=== PATIENT | female | born 1975 | race Caucasian/White ===

== ENCOUNTER 2016-11-05 17:41 | Emergency (ER) | payer SELFPAY ==
[2016-11-05] MEDS ORDERED: Lidocaine 2% Jelly 5 ML TUBE ONE (17:52)
== END 2016-11-05 18:06 | disposition home or self-care (01) ==
LOC: BURERS 17:41
DX: K64.8 Other hemorrhoids (principal); F31.9 Bipolar disorder, unspecified; F17.210 Nicotine dependence, cigarettes, uncomplicated
CPT/HCPCS: 99283

== ENCOUNTER 2016-12-13 17:39 | Emergency (ER) | payer SELFPAY ==
[2016-12-13] MEDS ORDERED: Dexamethasone 4 mg/ml Vial ONE (18:15)
[2016-12-13] MEDS ORDERED: AMOXicillin 250 MG CAP ONE (18:19)
== END 2016-12-13 18:33 | disposition home or self-care (01) ==
LOC: BURERS 17:39
DX: J44.9 Chronic obstructive pulmonary disease, unspecified (principal); J20.9 Acute bronchitis, unspecified; F31.9 Bipolar disorder, unspecified; F17.210 Nicotine dependence, cigarettes, uncomplicated
CPT/HCPCS: 94640; 94760; J1100; J7620

== ENCOUNTER 2017-02-16 10:35 | Emergency (ER) | payer SELFPAY | END 2017-02-16 11:30 | disposition home or self-care (01) | LOC: BURERS 10:35 | DX: K60.2 Anal fissure, unspecified (principal); F31.9 Bipolar disorder, unspecified; F17.210 Nicotine dependence, cigarettes, uncomplicated | CPT/HCPCS: 99283 ==

== ENCOUNTER 2017-03-11 13:55 | Emergency (ER) | payer SELFPAY ==
[2017-03-11 14:18] LABS: #Lymphocytes 1.6 thou/uL (1.20-3.40); #Monocytes 0.5 thou/uL (0.11-0.59); #Neutrophils 8.6 thou/uL (1.40-6.50); %Basophils 0.4 % (0.0-1.0); %Eosinophils 0.1 % (0.0-10.0); %Lymphocytes 14.9 % (21.0-51.0); %Monocytes 4.6 % (0.0-10.0); Hemoglobin 14.4 g/dL (12.0-16.0); MDiff Complete? YES; Macrocytosis SLIGHT = 6-15 cells (100X) (0-5/hpf); Mean Corpuscular HGB CONC 33.5 g/dL (32.0-36.0); Mean Corpuscular Hemoglobin 34.4 pg (27.0-31.0); Mean Platelet Volume 7.8 fL (7.4-10.4); Platelet Count 121 thou/uL (130-400); RBC Distribution Width 11.3 % (11.5-14.5); Red Blood Cell (RBC) Count 4.18 mill/uL (4.20-5.40); White Blood Cell (WBC) Count 10.7 thou/uL (4.8-10.8)
[2017-03-11 14:30] LABS: ALT (SGPT) 11 U/L (8-55); AST (SGOT) 17 U/L (5-34); Albumin 3.8 g/dL (3.5-5.0); Alkaline Phosphatase 53 U/L (40-150); Anion Gap 14 mmol/L (10-20); BUN (Urea Nitrogen) 6 mg/dL (7.0-18.7); Bilirubin, Total 0.3 mg/dL (0.2-1.2); CK (CPK) 70 U/L (29-168); Calc. Creatinine Clearance 0 mL/min (70-130); Calcium 8.7 mg/dL (7.8-10.44); Carbon Dioxide 24 mmol/L (22-29); Chloride 106 mmol/L (98-107); Estimated GFR-MDRD Greater than 90; Globulin 2.3 g/dL (2.4-3.5); Glucose 73 mg/dL (70-105); Lipase 11 U/L (8-78); Potassium 3.8 mmol/L (3.5-5.1); Protein, Total 6.1 g/dL (6.0-8.3); Sodium 140 mmol/L (136-145)
[2017-03-11 14:31] LABS: CKMB 1.5 ng/mL (0-6.6); Troponin I Less than 0.010 ng/mL (< 0.028)
[2017-03-11 14:32] LABS: PTT 28.1 SEC (22.9-36.1)
[2017-03-11 14:33] LABS: INR-International Normal Ratio 0.9; Prothrombin Time 12.7 SEC (12.0-14.7)
[2017-03-11 15:02] LABS: D-Dimer Test 0.65 *mcg/mL (0.27-0.43)
[2017-03-11] MEDS ORDERED: Morphine 4 MG/ML Carpuject ONE (15:06)
--- NOTE | 2017-03-11 16:02 | CT ---
CT ANGIOGRAM THORAX WITH IV CONTRAST AND 3D RECONSTRUCTIONS: DATE: 03/11/17. HISTORY: Chest pain. The patient feels as if she is going to pass out. FINDINGS: No filling defects are seen in the pulmonary arteries to suggest a pulmonary embolus. Thoracic aorta is normal in caliber without evidence of an aortic dissection. There is peribronchial thickening involving the distal left lower lobe bronchioles with debris or muc us plugging within these bronchioles as well. There is patchy parenchymal opacity at the left lung b as which may be related to postobstructive pneumonitis or pneumonia. Findings could be related to as piration pneumonitis. There is soft tissue density in the left hilar region measuring 2.1 cm x 1.4 cm probably related to e nlarged left hilar lymph node. No enlarged mediastinal lymph nodes are seen. There is general hazin ess of the mediastinal fat, but a similar finding is seen in the subcutaneous fat and this may be allie hnical in origin. There are subcentimeter too small to characterize hypodense lesions seen in each lobe of the liver wh ich are difficult to further characterize. While these are difficult to further characterize, these low-density lesions seen in each lobe of the liver which are difficult to further characterize. Whil e these are difficult t further characterize, these low-density lesions may potentially represent sma ll cysts. IMPRESSION: 1. Peribronchial thickening with debris or mucus plugging within distal left lower lobe bronchioles with parenchymal opacity in the left lower lobe. Findings could be related to mucus plugging and ass ociated postobstructive pneumonitis. Findings could also be related to aspiration and aspiration pne umonitis. Followup to complete resolution is recommended. 2. No CT evidence of a pulmonary embolus. 3. Nonspecific subcentimeter hypodense lesions in each lobe of the liver which may potentially repre sent hepatic cysts. POS: [facility]
--- NOTE | 2017-03-11 18:39 | RAD ---
PORTABLE CHEST: 03/11/2017 An AP portable film at 1357 hours is compared with a 11/02/2015 study. The heart is normal in size, and the lungs are clear. No infiltrate or effusion was seen. There is no vascular congestion or edema. The mediastinum appears normal, and the trachea is midline. IMPRESSION: No acute thoracic findings. POS: HOME
== END 2017-03-11 17:19 | disposition home or self-care (01) ==
LOC: BURERS 13:55
DX: J18.9 Pneumonia, unspecified organism (principal); F31.9 Bipolar disorder, unspecified; F17.210 Nicotine dependence, cigarettes, uncomplicated
CPT/HCPCS: 71010; 71275; 80053; 82553; 83690; 84484; 85025; 85379; 85610; 85730; 93005; 94760; 96361; 96365; 96375; J1956; J2270

== ENCOUNTER 2017-06-21 07:13 | Emergency (ER) | payer SELFPAY ==
[2017-06-21] MEDS ORDERED: Ketorolac Tromethamine 30 MG/ML VIAL ONE (07:47)
== END 2017-06-21 08:08 | disposition home or self-care (01) ==
LOC: BURERS 07:13
DX: M54.2 Cervicalgia (principal); F31.9 Bipolar disorder, unspecified; F17.210 Nicotine dependence, cigarettes, uncomplicated
CPT/HCPCS: 96372; J1885

== ENCOUNTER 2017-07-25 17:37 | Emergency (ER) | payer SELFPAY ==
[2017-07-25] MEDS ORDERED: Ibuprofen 200 MG TAB ONE (17:50)
--- NOTE | 2017-07-25 19:49 | RAD ---
LEFT ELBOW FOUR VIEWS: 07/25/17 No fracture or joint effusion was seen. The bony structures appear intact. IMPRESSION: No acute findings. POS: HOME
== END 2017-07-25 18:35 | disposition home or self-care (01) ==
LOC: BURERS 17:37
DX: S50.02XA Contusion of left elbow, initial encounter (principal); F31.9 Bipolar disorder, unspecified; F17.210 Nicotine dependence, cigarettes, uncomplicated; W17.89XA Other fall from one level to another, initial encounter

== ENCOUNTER 2017-08-07 08:54 | Emergency (ER) | payer SELFPAY | END 2017-08-07 10:00 | disposition home or self-care (01) | LOC: BURERS 08:54 | DX: M77.11 Lateral epicondylitis, right elbow (principal); F31.9 Bipolar disorder, unspecified; F17.210 Nicotine dependence, cigarettes, uncomplicated | CPT/HCPCS: 99283 ==

== ENCOUNTER 2017-09-19 07:20 | Emergency (ER) | payer SELFPAY ==
[2017-09-19] MEDS ORDERED: HYDROcodone/Acetaminophen 5/325 mg Tablet ONE (07:44)
[2017-09-19] MEDS ORDERED: AMOXicillin 250 MG CAP ONE (07:48)
--- NOTE | 2017-09-19 18:52 | RAD ---
CHEST TWO VIEWS: 09/19/17 There is a small infiltrate in the anterior portion of the right middle lobe. Pneumonia is presumed. The lungs are otherwise clear. There are no effusions of concern. The difference in opacity of each h emithorax is felt to be due to positioning. The heart size is normal and the trachea is midline. IMPRESSION: Right middle lobe pneumonia. POS: HOME
== END 2017-09-19 08:40 | disposition home or self-care (01) ==
LOC: BURERS 07:20
DX: J18.9 Pneumonia, unspecified organism (principal); J44.9 Chronic obstructive pulmonary disease, unspecified; F17.200 Nicotine dependence, unspecified, uncomplicated; F17.210 Nicotine dependence, cigarettes, uncomplicated; F31.9 Bipolar disorder, unspecified
CPT/HCPCS: 71046; J7620

== ENCOUNTER 2017-10-03 11:51 | Emergency (ER) | payer SELFPAY ==
--- NOTE | 2017-10-03 16:42 | RAD ---
RIGHT ELBOW 4 VIEWS: Date: 10/03/17 FINDINGS: No fracture or joint effusion seen. There were no causes for pain appreciated. All articular surfaces appear normal. IMPRESSION: No significant finding. POS: HOME
== END 2017-10-03 12:39 | disposition home or self-care (01) ==
LOC: BURERS 11:51
DX: M77.11 Lateral epicondylitis, right elbow (principal); F31.9 Bipolar disorder, unspecified; F17.210 Nicotine dependence, cigarettes, uncomplicated; Z79.899 Other long term (current) drug therapy

== ENCOUNTER 2017-10-23 10:50 | Emergency (ER) | payer SELFPAY ==
[2017-10-23] MEDS ORDERED: Ibuprofen 200 MG TAB ONE (11:41)
--- NOTE | 2017-10-23 14:43 | RAD ---
CHEST 2 VIEWS: Date: 10/23/17 Comparison made with the 09/19/17 study. FINDINGS: The right middle lobe infiltrate has essentially resolved. No new infiltrate was appreciated. The regan gs are clear and there are no effusions. The heart is not enlarged. The mediastinum is unremarkable. IMPRESSION: Clearing of the lungs since last month's study. POS: HOME
== END 2017-10-23 11:44 | disposition home or self-care (01) ==
LOC: BURERS 10:50
DX: R05 Cough (principal); F31.9 Bipolar disorder, unspecified; F17.210 Nicotine dependence, cigarettes, uncomplicated
CPT/HCPCS: 71046; 99406

== ENCOUNTER 2017-11-01 03:55 | Emergency (ER) | payer SELFPAY ==
[2017-11-01] MEDS ORDERED: Ketorolac Tromethamine 30 MG/ML VIAL ONE (04:24)
[2017-11-01 04:40] LABS: ALT (SGPT) 9 U/L (8-55); AST (SGOT) 12 U/L (5-34); Albumin 3.5 g/dL (3.5-5.0); Alkaline Phosphatase 52 U/L (40-150); Anion Gap 12 mmol/L (10-20); BUN (Urea Nitrogen) 9 mg/dL (7.0-18.7); Bilirubin, Total 1.1 mg/dL (0.2-1.2); Calc. Creatinine Clearance 0 mL/min (70-130); Calcium 8.6 mg/dL (7.8-10.44); Carbon Dioxide 25 mmol/L (22-29); Chloride 104 mmol/L (98-107); Estimated GFR-MDRD Greater than 90; Globulin 2.4 g/dL (2.4-3.5); Glucose 88 mg/dL (70-105); Potassium 3.8 mmol/L (3.5-5.1); Protein, Total 5.9 g/dL (6.0-8.3); Sodium 137 mmol/L (136-145)
[2017-11-01 04:42] LABS: Hemoglobin 15.4 g/dL (12.0-16.0); Mean Corpuscular HGB CONC 38.3 g/dL (32.0-36.0); Mean Corpuscular Volume 88.6 fL (78.0-98.0); Mean Platelet Volume 6.9 fL (7.4-10.4); Platelet Count 132 thou/uL (130-400); Red Blood Cell (RBC) Count 4.52 mill/uL (4.20-5.40); White Blood Cell (WBC) Count 12.8 thou/uL (4.8-10.8)
[2017-11-01 04:50] LABS: Lymphocytes 32 % (21-51); MDiff Complete? YES; Monocytes 5 % (0-10); Neutrophil 63 % (42-75); PLT Morphology Comment Appears Decreased; RBC Morphology Normal
[2017-11-01] MEDS ORDERED: Albuterol Sulfate 1.25 MG/3 ML NEB ONE (04:53)
[2017-11-01] MEDS ORDERED: Albuterol Sulfate 2.5 mg/3 ml Neb ONE (04:54)
--- NOTE | 2017-11-01 07:41 | RAD ---
PORTABLE CHEST: DATE: 11/01/17. FINDINGS: Comparison is made with the prior study dated 10/23. In the interval, there has been a right perihila r opacity occur that was not present previously. Given the clinical symptoms, pneumonia is presumed given the short time course to appear. It is most likely located in the right lower lobe as I can se e the right heart border very distinctly. The left lung is clear. There are no effusions. IMPRESSION: New right perihilar density. Pneumonia presumed. Followup films to complete resolution recommended. POS: HOME
== END 2017-11-01 06:36 | disposition home or self-care (01) ==
LOC: BURERS 03:55
DX: J18.9 Pneumonia, unspecified organism (principal); F17.200 Nicotine dependence, unspecified, uncomplicated; F31.9 Bipolar disorder, unspecified; F17.210 Nicotine dependence, cigarettes, uncomplicated
CPT/HCPCS: 36415; 71045; 80053; 83605; 85025; 87040; 93005; 94640; 96365; 96375; J1885; J1956; J7611; J7620

== ENCOUNTER 2017-11-25 12:30 | Emergency (ER) | payer SELFPAY ==
[2017-11-25] MEDS ORDERED: Ketorolac Tromethamine 60 MG/2 ML VIAL ONE (13:07)
[2017-11-25 13:28] LABS: ALT (SGPT) 11 U/L (8-55); AST (SGOT) 16 U/L (5-34); Albumin 3.5 g/dL (3.5-5.0); Alkaline Phosphatase 44 U/L (40-150); Anion Gap 11 mmol/L (10-20); BUN (Urea Nitrogen) 10 mg/dL (7.0-18.7); Bilirubin, Total 0.6 mg/dL (0.2-1.2); Calc. Creatinine Clearance 0 mL/min (70-130); Calcium 8.4 mg/dL (7.8-10.44); Carbon Dioxide 25 mmol/L (22-29); Chloride 108 mmol/L (98-107); Estimated GFR-MDRD Greater than 90; Glucose 78 mg/dL (70-105); Lipase 11 U/L (8-78); Potassium 3.8 mmol/L (3.5-5.1); Protein, Total 5.5 g/dL (6.0-8.3); Sodium 140 mmol/L (136-145)
[2017-11-25 13:29] LABS: CKMB 1.7 ng/mL (0-6.6)
[2017-11-25 13:33] LABS: #Basophils 0.1 thou/uL (0.0-0.2); #Monocytes 0.2 thou/uL (0.11-0.59); #Neutrophils 3.1 thou/uL (1.40-6.50); %Eosinophils 0.3 % (0.0-10.0); %Lymphocytes 36.9 % (21.0-51.0); %Monocytes 4.3 % (0.0-10.0); %Neutrophils 57.5 % (42.0-75.0); Hemoglobin 13.1 g/dL (12.0-16.0); Mean Corpuscular HGB CONC 39.2 g/dL (32.0-36.0); Mean Corpuscular Hemoglobin 35.2 pg (27.0-31.0); Mean Corpuscular Volume 89.8 fL (78.0-98.0); Mean Platelet Volume 6.7 fL (7.4-10.4); Platelet Count 146 thou/uL (130-400); RBC Distribution Width 11.2 % (11.5-14.5); Red Blood Cell (RBC) Count 3.71 mill/uL (4.20-5.40); White Blood Cell (WBC) Count 5.4 thou/uL (4.8-10.8)
[2017-11-25 15:57] LABS: Troponin I Less than 0.010 ng/mL (< 0.028)
--- NOTE | 2017-11-25 18:30 | RAD ---
PORTABLE CHEST: 11/25/17. An AP portable film at 1227 is compared with a 10/2017 study. The heart is normal in size and the lungs are clear. There is no sign of pneumonia, pleural effusion, or vascular congestion. The trachea is midline. IMPRESSION: No acute thoracic findings. POS: HOME
== END 2017-11-25 16:15 | disposition home or self-care (01) ==
LOC: BURERS 12:30
DX: M94.0 Chondrocostal junction syndrome [Tietze] (principal); F31.9 Bipolar disorder, unspecified; F17.210 Nicotine dependence, cigarettes, uncomplicated; Z79.899 Other long term (current) drug therapy
CPT/HCPCS: 71045; 80053; 82553; 83690; 84484; 85025; 96372; J1885

== ENCOUNTER 2018-02-04 19:51 | Emergency (ER) | payer SELFPAY ==
[2018-02-04] MEDS ORDERED: Amoxicillin/Potassium Clav 875 MG TAB ONE (20:27)
[2018-02-04] MEDS ORDERED: Ibuprofen 200 MG TAB ONE (20:27)
--- NOTE | 2018-02-05 08:28 | RAD ---
CHEST 2 VIEWS: DATE: 02/04/2018. FINDINGS: Comparison is made with an 11/25/2017 study. The heart size is normal in size and the lungs are clear. No infiltrate or effusion was seen. The v asculature seems normal. The mediastinum is unremarkable. IMPRESSION: No acute thoracic findings. POS: HOME
== END 2018-02-04 20:30 | disposition home or self-care (01) ==
LOC: BURERS 19:51
DX: J01.90 Acute sinusitis, unspecified (principal); F31.9 Bipolar disorder, unspecified; F17.210 Nicotine dependence, cigarettes, uncomplicated
CPT/HCPCS: 71046; 87804

== ENCOUNTER 2018-04-27 21:03 | Emergency (ER) | payer SELFPAY | END 2018-04-27 21:27 | disposition home or self-care (01) | LOC: BURERS 21:03 | DX: J06.9 Acute upper respiratory infection, unspecified (principal); F31.9 Bipolar disorder, unspecified; F17.210 Nicotine dependence, cigarettes, uncomplicated | CPT/HCPCS: 99281 ==

== ENCOUNTER 2018-11-21 22:13 | Emergency (ER) | payer MEDICAID ==
[2018-11-21] MEDS ORDERED: Ibuprofen 200 MG TAB ONE (22:22)
--- NOTE | 2018-11-21 22:43 | RAD ---
XR Shoulder Rt 3 View STANDARD History: Injury. Comparison: None. Findings: No acute fracture or malalignment. Mild narrowing acromio clavicular joint. Ribs are intact . No apical pneumothorax. Impression: Mild degenerative change acromio clavicular joint without acute osseous abnormality.
== END 2018-11-21 22:35 | disposition home or self-care (01) ==
LOC: BURERS 22:13
DX: S40.011A Contusion of right shoulder, initial encounter (principal); F31.9 Bipolar disorder, unspecified; F17.210 Nicotine dependence, cigarettes, uncomplicated; W20.8XXA Other cause of strike by thrown, projected or falling object, initial encounter

== ENCOUNTER 2019-03-22 20:34 | Emergency (ER) | payer MEDICAID ==
[2019-03-22] MEDS ORDERED: traMADol HCl 50 MG TAB ONE (20:53)
== END 2019-03-22 20:57 | disposition home or self-care (01) ==
LOC: BURERS 20:34
DX: S93.401A Sprain of unspecified ligament of right ankle, initial encounter (principal); F31.9 Bipolar disorder, unspecified; F17.210 Nicotine dependence, cigarettes, uncomplicated; Z87.01 Personal history of pneumonia (recurrent); X50.9XXA Other and unspecified overexertion or strenuous movements or postures, initial encounter
CPT/HCPCS: 99283

== ENCOUNTER 2020-03-15 11:45 | Emergency (ER) | payer MEDICAID, SELFPAY ==
[2020-03-15] MEDS ORDERED: Ketorolac Tromethamine 30 MG/ML VIAL ONE (12:01)
[2020-03-15 12:17] LABS: Hemoglobin 18.8 g/dL (12.0-16.0); Mean Corpuscular HGB CONC 35.8 g/dL (32.0-36.0); Mean Corpuscular Hemoglobin 36.7 pg (27.0-31.0); Mean Platelet Volume 8.3 fL (7.4-10.4); Platelet Count 190 thou/uL (130-400); RBC Distribution Width 11.8 % (11.5-14.5); Red Blood Cell (RBC) Count 5.13 mill/uL (4.20-5.40); White Blood Cell (WBC) Count 8.9 thou/uL (4.8-10.8)
[2020-03-15 12:36] LABS: ALT (SGPT) 14 U/L (8-55); AST (SGOT) 14 U/L (5-34); Albumin 4.3 g/dL (3.5-5.0); Alkaline Phosphatase 65 U/L (40-110); Anion Gap 18 mmol/L (10-20); BUN (Urea Nitrogen) 5 mg/dL (7.0-18.7); Bilirubin, Total 0.9 mg/dL (0.2-1.2); Calc. Creatinine Clearance 0 mL/min (70-130); Calcium 8.9 mg/dL (7.8-10.44); Carbon Dioxide 24 mmol/L (22-29); Chloride 99 mmol/L (98-107); Estimated GFR-MDRD 80; Globulin 2.6 g/dL (2.4-3.5); Glucose 62 mg/dL (70-105); Lipase 9 U/L (8-78); Potassium 3.3 mmol/L (3.5-5.1); Protein, Total 6.9 g/dL (6.0-8.3); Sodium 138 mmol/L (136-145)
[2020-03-15 12:40] LABS: #Basophils 0.1 thou/uL (0.0-0.2); #Lymphocytes 2.6 thou/uL (1.20-3.40); #Monocytes 0.6 thou/uL (0.11-0.59); #Neutrophils 5.6 thou/uL (1.40-6.50); %Basophils 0.6 % (0.0-1.0); %Eosinophils 0.3 % (0.0-10.0); %Lymphocytes 29.2 % (21.0-51.0); %Monocytes 6.6 % (0.0-10.0); %Neutrophils 63.2 % (42.0-75.0); Anisocytosis SLIGHT = 6-15 cells (100X) (0-5/hpf); MDiff Complete? YES; Macrocytosis SLIGHT = 6-15 cells (100X) (0-5/hpf); Platelet Morphology Comment Appears Adequate; Target Cells SLIGHT = 2-5 cells (100X) (0-1/hpf)
--- NOTE | 2020-03-15 15:04 | RAD ---
CHEST TWO VIEWS: 03/15/20 Comparison is made with a 02/04/18 study. The heart is normal in size. No acute infiltrate or effusion was seen, though the lungs are mildly hy perexpanded. The mediastinum appears normal and the trachea is midline. IMPRESSION: Slightly hyperexpanded lungs but no acute findings otherwise. POS: HOME
== END 2020-03-15 13:17 | disposition home or self-care (01) ==
LOC: BURERS 11:45
DX: M54.6 Pain in thoracic spine (principal); F31.9 Bipolar disorder, unspecified; F17.210 Nicotine dependence, cigarettes, uncomplicated
CPT/HCPCS: 36415; 71046; 80053; 83690; 85025; 86140; 96372; J1885

== ENCOUNTER 2020-09-08 21:27 | Emergency (ER) | payer SELFPAY ==
[2020-09-08] MEDS ORDERED: Ketorolac Tromethamine 30 MG/ML VIAL ONE (21:49)
[2020-09-08] MEDS ORDERED: HYDROcodone/Acetaminophen 10/325 mg Tablet ONE (21:49)
== END 2020-09-08 21:55 | disposition home or self-care (01) ==
LOC: BURERS 21:27
DX: M54.5 Low back pain (principal); G89.29 Other chronic pain; F17.210 Nicotine dependence, cigarettes, uncomplicated
CPT/HCPCS: 96372; 99282; J1885

== ENCOUNTER 2020-11-11 22:45 | Emergency (ER) | payer SELFPAY | END 2020-11-11 23:45 | disposition home or self-care (01) | LOC: BURERS 22:45 | DX: R59.0 Localized enlarged lymph nodes (principal); F17.210 Nicotine dependence, cigarettes, uncomplicated | CPT/HCPCS: 99281 ==

== ENCOUNTER 2020-11-21 22:05 | Emergency (ER) | payer SELFPAY | END 2020-11-21 22:25 | disposition left against medical advice (07) | LOC: BURERS 22:05 | DX: Z53.21 Procedure and treatment not carried out due to patient leaving prior to being seen by health care provider (principal) ==

== ENCOUNTER 2021-02-28 14:34 | Emergency (ER) | payer SELFPAY | END 2021-02-28 14:58 | disposition home or self-care (01) | LOC: BURERS 14:34 | DX: M62.838 Other muscle spasm (principal); F17.210 Nicotine dependence, cigarettes, uncomplicated | CPT/HCPCS: 99283 ==

== ENCOUNTER 2021-03-20 23:00 | Emergency (ER) | payer OTHER, SELFPAY ==
[2021-03-20] MEDS ORDERED: Ketorolac Tromethamine 30 MG/ML VIAL ONE (23:35)
[2021-03-20] MEDS ORDERED: Cyclobenzaprine 10 MG TAB ONE (23:35)
== END 2021-03-21 00:15 | disposition home or self-care (01) ==
LOC: BURERS 23:00
DX: S63.501A Unspecified sprain of right wrist, initial encounter (principal); S20.222A Contusion of left back wall of thorax, initial encounter; W01.0XXA Fall on same level from slipping, tripping and stumbling without subsequent striking against object, initial encounter; F17.210 Nicotine dependence, cigarettes, uncomplicated; Z79.899 Other long term (current) drug therapy
CPT/HCPCS: 96372; J1885

== ENCOUNTER 2021-04-17 10:48 | Emergency (ER) | payer SELFPAY ==
[2021-04-17] MEDS ORDERED: Dexamethasone 10 MG/ML VIAL ONE (11:21)
[2021-04-17] MEDS ORDERED: Ketorolac Tromethamine 30 MG/ML VIAL ONE (11:53)
== END 2021-04-17 12:06 | disposition home or self-care (01) ==
LOC: BURERS 10:48
DX: M54.6 Pain in thoracic spine (principal); J04.0 Acute laryngitis; W01.0XXA Fall on same level from slipping, tripping and stumbling without subsequent striking against object, initial encounter; F17.210 Nicotine dependence, cigarettes, uncomplicated
CPT/HCPCS: 71046; 96372; J1100; J1885

== ENCOUNTER 2021-05-01 09:11 | Emergency (ER) | payer SELFPAY | END 2021-05-01 10:30 | disposition home or self-care (01) | LOC: BURERS 09:11 | DX: S93.402A Sprain of unspecified ligament of left ankle, initial encounter (principal) ==

== ENCOUNTER 2021-05-14 20:24 | Emergency (ER) | payer SELFPAY ==
[2021-05-14] MEDS ORDERED: traMADol HCl 50 MG TAB ONE ×2 (21:26)
[2021-05-14] MEDS ORDERED: Ibuprofen 800 MG TAB ONE (21:26)
== END 2021-05-14 21:42 | disposition home or self-care (01) ==
LOC: BURERS 20:24
DX: M54.6 Pain in thoracic spine (principal); M54.50 Low back pain, unspecified; M25.512 Pain in left shoulder; F17.210 Nicotine dependence, cigarettes, uncomplicated; Z79.899 Other long term (current) drug therapy; W19.XXXA Unspecified fall, initial encounter; Y93.01 Activity, walking, marching and hiking
CPT/HCPCS: 71046; 72100

== ENCOUNTER 2022-01-17 21:18 | Emergency (ER) | payer SELFPAY ==
[2022-01-17] MEDS ORDERED: Ondansetron ODT 4 MG TAB ONE (22:05)
[2022-01-17] MEDS ORDERED: Dicyclomine 20 MG/2 ML VIAL ONE (22:05)
[2022-01-17 22:29] LABS: #Basophils 0.1 thou/uL (0.0-0.2); #Lymphocytes 2.6 thou/uL (1.20-3.40); #Monocytes 0.6 thou/uL (0.11-0.59); #Neutrophils 3.8 thou/uL (1.40-6.50); %Basophils 1.1 % (0.0-1.0); %Eosinophils 0.7 % (0.0-10.0); %Lymphocytes 36.8 % (21.0-51.0); %Monocytes 8.1 % (0.0-10.0); %Neutrophils 53.3 % (42.0-75.0); Hemoglobin 15.6 g/dL (12.0-16.0); Mean Corpuscular HGB CONC 34.4 g/dL (32.0-36.0); Mean Corpuscular Hemoglobin 35.8 pg (27.0-31.0); Mean Platelet Volume 8.1 fL (7.4-10.4); Platelet Count 154 thou/uL (130-400); RBC Distribution Width 12.3 % (11.5-14.5); Red Blood Cell (RBC) Count 4.35 mill/uL (4.20-5.40); White Blood Cell (WBC) Count 7.1 thou/uL (4.8-10.8)
[2022-01-17 22:45] LABS: ALT (SGPT) 11 U/L (8-55); AST (SGOT) 16 U/L (5-34); Albumin 3.7 g/dL (3.5-5.0); Alkaline Phosphatase 43 U/L (40-110); Anion Gap 12 mmol/L (10-20); BUN (Urea Nitrogen) 8 mg/dL (7.0-18.7); Bilirubin, Total 0.3 mg/dL (0.2-1.2); Calc. Creatinine Clearance 0 mL/min (70-130); Calcium 8.6 mg/dL (7.8-10.44); Carbon Dioxide 24 mmol/L (22-29); Chloride 103 mmol/L (98-107); Estimated GFR 104; Globulin 2.5 g/dL (2.4-3.5); Glucose 74 mg/dL (70-105); Lipase 22 U/L (8-78); Potassium 4.2 mmol/L (3.5-5.1); Protein, Total 6.2 g/dL (6.0-8.3); Sodium 135 mmol/L (136-145)
== END 2022-01-17 22:55 | disposition home or self-care (01) ==
LOC: BURERS 21:18
DX: K52.9 Noninfective gastroenteritis and colitis, unspecified (principal); F17.210 Nicotine dependence, cigarettes, uncomplicated; Z79.899 Other long term (current) drug therapy
CPT/HCPCS: 36415; 80053; 83690; 85025; 96372; 99284; Q0162

== ENCOUNTER 2023-03-17 11:02 | Emergency (ER) | payer OTHER | END 2023-03-17 11:43 | disposition home or self-care (01) | LOC: BURERS 11:02 | DX: J11.1 Influenza due to unidentified influenza virus with other respiratory manifestations (principal); F17.210 Nicotine dependence, cigarettes, uncomplicated | CPT/HCPCS: 99282 ==

== ENCOUNTER 2023-08-08 22:12 | Emergency (ER) | payer OTHER ==
[2023-08-08] MEDS ORDERED: Acetaminophen 325 MG TAB ONE (22:36)
== END 2023-08-08 23:17 | disposition home or self-care (01) ==
LOC: BURERS 22:12
DX: M25.562 Pain in left knee (principal); F17.210 Nicotine dependence, cigarettes, uncomplicated

== ENCOUNTER 2024-01-19 11:29 | Emergency (ER) | payer OTHER, SELFPAY ==
[2024-01-19] MEDS ORDERED: Ketorolac Tromethamine 30 MG (1 mL) VIAL ONE (11:58)
== END 2024-01-19 12:10 | disposition home or self-care (01) ==
LOC: BURERS 11:29
DX: M54.6 Pain in thoracic spine (principal); F17.210 Nicotine dependence, cigarettes, uncomplicated; X50.9XXA Other and unspecified overexertion or strenuous movements or postures, initial encounter; Y99.0 Civilian activity done for income or pay
CPT/HCPCS: 96372; 99283; J1885

== ENCOUNTER 2024-02-11 12:09 | Emergency (ER) | payer SELFPAY ==
[2024-02-11] MEDS ORDERED: predniSONE 20 MG TAB ONE (12:33)
[2024-02-11] MEDS ORDERED: Ibuprofen 200 MG TAB ONE (12:33)
== END 2024-02-11 12:43 | disposition home or self-care (01) ==
LOC: BURERS 12:09
DX: M26.601 Right temporomandibular joint disorder, unspecified (principal); F17.210 Nicotine dependence, cigarettes, uncomplicated
CPT/HCPCS: 99283; J7512

== ENCOUNTER 2024-03-23 14:51 | Emergency (ER) | payer SELFPAY ==
[2024-03-23] MEDS ORDERED: predniSONE 20 MG TAB ONE ×2 (16:35→16:51)
== END 2024-03-23 16:55 | disposition home or self-care (01) ==
LOC: BURERS 14:51
DX: B34.9 Viral infection, unspecified (principal); F17.210 Nicotine dependence, cigarettes, uncomplicated
CPT/HCPCS: 71046; 87428; J7512

== ENCOUNTER 2024-04-02 15:25 | Emergency (ER) | payer SELFPAY | END 2024-04-02 15:48 | disposition home or self-care (01) | LOC: BURERS 15:25 | DX: A69.1 Other Vincent's infections (principal); K08.89 Other specified disorders of teeth and supporting structures; F17.210 Nicotine dependence, cigarettes, uncomplicated | CPT/HCPCS: 99283 ==

== ENCOUNTER 2024-04-06 08:36 | Emergency (ER) | payer SELFPAY | END 2024-04-06 09:16 | disposition home or self-care (01) | LOC: BURERS 08:36 | DX: K04.7 Periapical abscess without sinus (principal); K02.9 Dental caries, unspecified; F17.210 Nicotine dependence, cigarettes, uncomplicated | CPT/HCPCS: 99282 ==

== ENCOUNTER 2024-06-19 16:50 | Emergency (ER) | payer OTHER, SELFPAY | END 2024-06-19 17:40 | disposition home or self-care (01) | LOC: EEVIPCON 16:50 → BURERS 16:50 | DX: K02.9 Dental caries, unspecified (principal); F17.210 Nicotine dependence, cigarettes, uncomplicated | CPT/HCPCS: 99282 ==

== ENCOUNTER 2024-11-16 15:16 | Emergency (ER) | payer OTHER ==
[~2024-11-16 15:16] MED LIST: Iopamidol 370 76% 100 ML VIAL ONE
[2024-11-16 15:56] LABS: Pregnancy Test - Urine (BHCG) Negative (Negative); Pregu Control Background? CLEAR/WHITE (CLR/WHITE); Pregu Control Bar Appear? YES (CONTROL BAR)
[2024-11-16] MEDS ORDERED: Mag-Al 1200 mg/1200 mg/30 ML UDCUP ONE (15:56)
[2024-11-16] MEDS ORDERED: Famotidine/PF 20 mg/2ml Vial ONE (15:56)
[2024-11-16] MEDS ORDERED: Lidocaine Viscous Sol 2% 15 ml UD Cup ONE (15:56)
[2024-11-16] MEDS ORDERED: Ondansetron PF 4 MG/2 ML Vial ONE (15:56)
[2024-11-16 15:57] LABS: Glucose, Urine (Dipstick) Negative (Negative); Leukocyte Negative (Negative); Protein, Urine (Dipstick) Negative (Neg-Trace); Specific Gravity, Urine 1.010 (1.005-1.030)
[2024-11-16 16:03] LABS: #Basophils 0.1 thou/uL (0.0-0.2); #Eosinophils 0.0 thou/uL (0.0-0.7); #Lymphocytes 2.5 thou/uL (1.20-3.40); #Monocytes 0.4 thou/uL (0.11-0.59); #Neutrophils 4.7 thou/uL (1.40-6.50); %Basophils 0.9 % (0.0-1.0); %Eosinophils 0.2 % (0.0-10.0); %Lymphocytes 32.0 % (21.0-51.0); %Monocytes 5.3 % (0.0-10.0); %Neutrophils 61.7 % (42.0-75.0); Hematocrit 41.5 % (36.0-47.0); Hemoglobin 15.5 g/dL (12.0-16.0); Mean Corpuscular Hemoglobin 35.5 pg (27.0-31.0); Mean Corpuscular Volume 95.5 fl (78.0-98.0); Platelet Count 195 10x3/uL (130-400); Red Blood Cell (RBC) Count 4.35 mill/uL (4.20-5.40); White Blood Cell (WBC) Count 7.7 10x3/uL (4.8-10.8)
[2024-11-16 16:09] LABS: Bacteria/HPF None Seen HPF (None Seen); CAUTI Indications for Culture Dysuria,urgency,freq; Cocaine Metabolite Screen Negative (Negative); RBC/HPF 0-3 HPF (0-3); THC/Cannabinoid Screen PRELIM POSITIVE (Negative); Tricyclic Screen Negative (Negative); WBC/HPF 0-3 HPF (0-3)
[2024-11-16 16:10] LABS: Urine Culture Reflex No No
[2024-11-16 16:12] LABS: Acetaminophen 11 mcg/mL (Less than 10); Salicylate 11.9 mg/dL (Less than 8.0)
[2024-11-16 16:13] LABS: MDiff Complete? YES; Platelet Adequacy Comment Appears Adequate
[2024-11-16 16:14] LABS: Troponin I Less than 0.010 ng/mL (< 0.028)
[2024-11-16 16:16] LABS: ALT (SGPT) 11 U/L (Less than 34); AST (SGOT) 19 U/L (11-34); Albumin 3.9 g/dL (3.1-4.5); Alkaline Phosphatase 49 U/L (40-110); Anion Gap 15 mmol/L (10-20); BUN (Urea Nitrogen) 7 mg/dL (7.0-18.7); Bilirubin, Total 0.6 mg/dL (0.3-1.2); Calc. Creatinine Clearance 0 mL/min (70-130); Calcium 8.6 mg/dL (7.8-10.44); Carbon Dioxide 21 mmol/L (22-29); Chloride 98 mmol/L (98-107); Globulin 2.5 g/dL (2.4-3.5); Glucose 85 mg/dL (70-105); Potassium 3.6 mmol/L (3.5-5.1); Sodium 130 mmol/L (136-145)
== END 2024-11-16 17:36 | disposition home or self-care (01) ==
LOC: BURERS 15:16
DX: R19.00 Intra-abdominal and pelvic swelling, mass and lump, unspecified site (principal); R10.10 Upper abdominal pain, unspecified; F17.210 Nicotine dependence, cigarettes, uncomplicated
CPT/HCPCS: 74177; 80053; 80306; 80307; 81001; 81025; 84484; 85025; 93005; 94760; 96361; 96374; 96375; J1308; J2405; Q9967

== ENCOUNTER 2025-02-19 17:20 | Emergency (ER) | payer OTHER ==
[2025-02-19] MEDS ORDERED: Ibuprofen 200 MG TAB ONE (17:51)
== END 2025-02-19 17:53 | disposition home or self-care (01) ==
LOC: BURERS 17:20
DX: K04.7 Periapical abscess without sinus (principal); L03.211 Cellulitis of face; F17.210 Nicotine dependence, cigarettes, uncomplicated